=== PATIENT | female | born 1980 | race African-American/Black ===

== ENCOUNTER 2016-09-06 15:17 | Inpatient (IN) ==
[2016-09-06 16:09] LABS: MANUAL DIFF NEEDED? NO
[2016-09-06 16:20] LABS: BASO% 0.5 % (0.0-0.8); EOS# 0.13 X1000 (0.0-0.7); HEMATOCRIT 35.3 % (37.0-47.0); HEMOGLOBIN 12.3 g/dL (12.0-16.0); LYMPH# 1.75 X1000 (1.2-3.4); LYMPH% 27.4 % (20.5-51.1); MCHC 34.8 g/dL (33-37); MCV 88.9 FL (81-99); MONO# 0.42 X1000 (0.11-0.59); MONO% 6.6 % (1.7-9.3); MPV 9.8 FL (7.4-10.4); NEUT% 63.5 % (42.2-75.2); PLT 327 X1000 (130-400); RBC 3.97 XMIL (4.2-5.4)
[2016-09-06 16:52] LABS: AGAP 17; ALBUMIN 4.2 g/dL (3.5-5.0); ALKALINE PHOSPHATASE 40 U/L (32-104); AMYLASE 147 U/L (20-200); BUN 11 mg/dL (8-22); CHLORIDE 97 mmol/L (98-107); COSMO 269; GOT 17 U/L (10-30); GPT 8 U/L (10-36); LIPASE 15 U/L (13-60); POTASSIUM 3.6 mmol/L (3.5-5.1); SODIUM 133 mmol/L (136-145); TCO2 19 mmol/L (25-35); TOTAL BILIRUBIN 0.35 mg/dL (0.20-1.00); TOTAL PROTEIN 7.9 g/dL (6.3-8.3)
[2016-09-06] MEDS ORDERED: NS 2,000 ML IV ONE (20:33)
[2016-09-06] MEDS ORDERED: PHENERGAN IV ONE (20:33)
[2016-09-06] MEDS ORDERED: SODIUM CHLORIDE 0.9% INJ ONE (20:33)
[2016-09-06] MEDS ORDERED: PHENERGAN IM ONE (20:51)
[2016-09-06] MEDS ORDERED: ZOFRAN IV ONE (21:58)
[2016-09-06 22:30] LABS: URINE MICRO REVIEW NEEDED? NO; URINE SOURCE CLEAN CATCH
[2016-09-06 22:45] LABS: BILIRUBIN URINE NEGATIVE (NEGATIVE); BLOOD URINE NEGATIVE (NEGATIVE); COLOR YELLOW; GLUCOSE URINE >1000 mg/dL (NEGATIVE); LEUKOCYTES URINE NEGATIVE (NEGATIVE); NITRITE URINE NEGATIVE (NEGATIVE); PH URINE 5.5; PROTEIN URINE 50 mg/dL (NEGATIVE); SP GRAVITY URINE 1.034; TURBIDITY URINE CLEAR (CLEAR); UROBILINOGEN URINE NORMAL (NORMAL)
[2016-09-06 22:47] LABS: UR AMPHETAMINES QUAL NONE DETECTED (NONE DETECT); UR BARBITUATES QUAL NONE DETECTED (NONE DETECT); UR BENZODIAZEPIN QUAL NONE DETECTED (NONE DETECT); UR CANNABINOIDS QUAL NONE DETECTED (NONE DETECT); UR COCAINE QUAL NONE DETECTED (NONE DETECT); UR EPITHELIAL CELLS >10 /HPF (<10); UR METHADONE QUAL NONE DETECTED (NONE DETECT); UR OPIATES QUAL NONE DETECTED (NONE DETECT); UR OXYCODONE QUAL NONE DETECTED (NONE DETECT); UR PCP QUAL NONE DETECTED (NONE DETECT); URINE BACTERIA 1+ /HPF; URINE RBC <10 /HPF (<10); URINE WBC <10 /HPF (<10)
[2016-09-06] MEDS ORDERED: PATIENT'S OWN MED SUBQ SCH (23:30)
[2016-09-07] MEDS ORDERED: SODIUM CHLORIDE 0.9% INJ SCH (01:06)
[2016-09-07] MEDS: REGLAN IV SCH ×5 (01:31→18:11)
[2016-09-07] MEDS: PEPCID IV SCH ×2 (01:31→12:15)
[2016-09-07] MEDS: NS 1,000 ML IV SCH ×4 (01:32→17:19)
[2016-09-07 02:03] LABS: URINE CULTURE NEEDED? YES
[2016-09-07 02:17] LABS: MAGNESIUM 1.6 mg/dL (1.5-2.7)
[2016-09-07 03:13] LABS: HEMOGLOBIN A1C 5.3 % (4.8-6.0)
[2016-09-07 06:13] LABS: AGAP 18; BUN 12 mg/dL (8-22); CALCIUM 8.5 mg/dL (8.8-10.2); CHLORIDE 100 mmol/L (98-107); COSMO 275; POTASSIUM 3.7 mmol/L (3.5-5.1); SODIUM 135 mmol/L (136-145); TCO2 17 mmol/L (25-35)
[2016-09-07 06:27] LABS: BASO% 0.1 % (0.0-0.8); HEMATOCRIT 31.8 % (37.0-47.0); IMM GRAN# 0.03 X1000 (0.0-0.04); IMM GRAN% 0.2 % (0.0-0.5); LYMPH# 0.89 X1000 (1.2-3.4); LYMPH% 6.8 % (20.5-51.1); MANUAL DIFF NEEDED? YES; MCH 30.7 PG (27-31); MCHC 34.6 g/dL (33-37); MCV 88.8 FL (81-99); MONO# 0.34 X1000 (0.11-0.59); MONO% 2.6 % (1.7-9.3); NEUT% 90.3 % (42.2-75.2); PLT 300 X1000 (130-400); RBC 3.58 XMIL (4.2-5.4)
[2016-09-07 07:14] LABS: BANDS 4 % (0-1); LYMPHS 10 % (21-51)
--- NOTE | 2016-09-07 07:21 | HISTORY AND PHYSICAL ---
PRIMARY CARE PHYSICIAN: Dr. Melton. CHIEF COMPLAINT: Intractable nausea and vomiting. HISTORY OF PRESENT ILLNESS: This is a 36-year-old, female, with past medical history of diabetic gastroparesis and diabetes type 1, who presents to the emergency department today complaining of intractable nausea and vomiting. The patient has had probably 20 episodes of vomiting, some of them with bilious content. Upon ER evaluation, patient vitals were okay, and as per ER record patient was seen around 15:41, and a test was ordered, and 7:45, and also there is an order for abdominal x-ray ordered at 9:09 p.m. Apparently, they did not check this. It was positive, that is why they ordered a radiology exam. In any case, the patient is feeling better. She has received Zofran 8 mg IV, and also Phenergan, and she is still feeling fine. Zofran probably has some result on first trimester, so we prefer to avoid it. The patient also has talked with the doctor who placed this pacemaker, and according to him, the batteries will last 8 years, and considering that this patient was doing completely fine until yesterday and today, makes me think that this is not anything related to the pacemaker, as his doctor confirmed. The patient is being admitted for further evaluation and treatment. PAST MEDICAL HISTORY: 1. Diabetes type 1 on insulin pump. 2. Diabetic gastroparesis. 3. History of hemorrhoids. PAST SURGICAL HISTORY: 1. Cholecystectomy. 2. Pyloroplasty. 3. Removal of jejunostomy tube. ALLERGIES: No known drug allergies. SOCIAL HISTORY: The patient lives with . This is her 2nd , and on the first one she had a miscarriage. She denies using alcohol, smoking tobacco or using illicit drugs. FAMILY HISTORY: Noncontributory. REVIEW OF SYSTEMS: Eleven systems were reviewed, and all symptoms are related to the H P. PHYSICAL EXAMINATION: VITAL SIGNS: Temperature 98.6, heart rate 72, respiratory rate 18, blood pressure 132/72, O2 saturation 100% on room air. GENERAL: This is a 36-year-old, female, lying in bed, in no acute distress. HEENT: Head is normocephalic and atraumatic. Anicteric sclerae and pale conjunctivae. Mucous membranes moist. NECK: Supple. No JVD noted. No carotid bruits. No lymphadenopathy. No thyromegaly. CARDIOVASCULAR: S1, S2 heard. No murmurs, gallops, or rubs. Regular rate and rhythm. RESPIRATORY: Clear bilaterally to auscultation. No work of breathing or using accessory muscles. ABDOMEN: Soft, nontender to palpation. Bowel sounds present. No organomegaly. EXTREMITIES: No clubbing, cyanosis, or edema. Peripheral pulses present in both legs. NEUROLOGICAL: Patient is alert and oriented x3, able to move her extremities. Cranial nerves 2 through 12 grossly normal. LABORATORY DATA: CBC and BMP are completely unremarkable. Urine shows glucose, negative ketones and is negative. ASSESSMENT AND PLAN: 1. Hyperemesis gravidarum. 2. History of gastric pacemaker placement. 3. Diabetes mellitus type 1. PLAN: 1. The patient is going to be admitted to the hospital because of intractable nausea and vomiting. According to mother, it seems she got the pacemaker. She doesn't have any nausea or vomiting at all until yesterday and today. I think there is no problem with the pacemaker. Also, as mentioned before, Dr. Christian Smith talked with her GI doctor, who placed this gastric pacemaker, and they think it is not related to this device. 2. In any case, we are going to start IV fluids. We are going to start Reglan, which is can be used in . She is not complaining of any pain, so we are not providing pain medication at least at this time. 3. We are going to consult DRAWBENCH OPERATOR. We are going to put in the order for ultrasound to see how many weeks she is, and also we will defer the care of this patient in the morning to her primary care physician, Dr. Melton. cc: Altaf Larsen MD
--- NOTE | 2016-09-07 08:11 | PROGRESS NOTE ---
DATE: 09/07/2016 Level 3 visit. SUBJECTIVE: Interval history was reviewed by H and P done by hospitalist. She is well known to me, a 36-year-old female who has been suffering from type 1 diabetes, well controlled after gastric pacemaker since 2012, doing very well, and also gastroparesis, which was controlled after gastric pacemaker. She presented to the emergency room with intractable nausea, vomiting. Last bowel movement 2 days ago. After workup in the emergency room, the patient was found to have 8-week . Last menstrual period 07/08/2016. She is sexually active. She is feeling a little better. REVIEW OF SYSTEMS: General: Nausea retching. HEENT: No headache. No vision problem. No earache. No sore throat. Neck: No goiter. No lymphadenopathy. No bruit. Cardiopulmonary: No chest pain, shortness of breath, PND, orthopnea. : No history of hesitancy, frequency. Skin: No skin rashes. No swelling of feet. PAST MEDICAL HISTORY: Reviewed. PAST SURGICAL HISTORY: Reviewed. MEDICATIONS: Reviewed. PHYSICAL EXAMINATION: Vital Signs: Low-grade fever, blood pressure is 140/65, height 5 feet 4, weight 160 pounds. HEENT: Atraumatic, normocephalic. Pupils equal and reactive to light. TMs are normal. Dry mucous membranes. Neck: Supple. JVD is normal. Chest: Clear to auscultation. Heart: Heart sounds are regular. Abdomen: Belly is soft, nontender. Good bowel sounds. No masses palpable. Pelvic exam deferred. Extremities: No peripheral edema, cyanosis. Neurological: No obvious deficits. LABORATORY DATA: CBC: White cell count 13, hematocrit 32, platelets 300. SMA- 7: Sodium 135, potassium 3.7, chloride 100, anion gap is 18, BUN 12, creatinine 0.6, glucose 186. Magnesium 1.6. Liver function tests were normal. Serum test is positive. Urinalysis is negative. Tox screen was negative. ASSESSMENT AND PLAN: 1. Intractable nausea and vomiting due to hyperemesis gravidarum Primi . Plan is obstetrical ultrasound. Dr. Lepe consult. 2. Dehydration. Intravenous fluids. 3. Gastrointestinal prophylaxis with intravenous Pepcid and Reglan as needed. 4. Diet. Clear liquids. 5. Diabetes, on insulin pump. Follow up on sliding scale. Check the A1c. 6. Fever at 99.6, elevated white cell count. Repeat the urine for culture. 7. Discussed with the family and the . DOCUMENTATION TIME: 35 minutes. cc: Pietro Melton MD MTDD
--- NOTE | 2016-09-07 10:40 | Diag Imaging Result Document ---
PROCEDURE NAME: US OBS COMPLETE < 14 WKS - 09/07/2016 OB ULTRASOUND: FINDINGS: There is a viable intrauterine gestation with a heart rate of 169 beats per minute. By multiple parameters, estimated gestational age is 12 weeks 6 days with an SERAFIN of 03/16/2017. The estimated weight is 61 g. Fetus is in breech presentation. The placenta appears to be anterior. There are no adnexal masses. The amniotic fluid volume is normal in appearance. IMPRESSION: Viable intrauterine gestation at 12 weeks 6 days by ultrasound.
--- NOTE | 2016-09-07 20:54 | CONSULTATION ---
DATE OF CONSULTATION: 09/07/2016 REFERRING PHYSICIAN: Pietro Melton M.D. CONSULTING PHYSICIAN: Reinier Lepe M.D. REASON FOR CONSULTATION: . SUMMARY: Sina Johnston is a 36-year-old who did not realize she was until she presented to the emergency department with nausea and vomiting. She had an ultrasound and was found to be approximately 13 weeks . She does have a history of diabetes and it sounds like she has been under good control recently. She also has a history of gastroparesis and has a gastric pacemaker. She has no questions today and we will be more than happy to see her for care as soon as she is released from the hospital. She has my name and phone number, and will contact us. cc: MD Pietro Hall MD
[2016-09-08] MEDS: REGLAN IV SCH ×4 (00:12→18:57)
[2016-09-08] MEDS: PEPCID IV SCH ×2 (00:12→12:13)
[2016-09-08] MEDS: NS 1,000 ML IV SCH ×3 (00:54→15:38)
[2016-09-08 06:35] LABS: AGAP 14; BUN 10 mg/dL (8-22); CALCIUM 8.1 mg/dL (8.8-10.2); CHLORIDE 103 mmol/L (98-107); COSMO 273; MAGNESIUM 1.9 mg/dL (1.5-2.7); POTASSIUM 3.7 mmol/L (3.5-5.1); SODIUM 135 mmol/L (136-145); TCO2 18 mmol/L (25-35)
[2016-09-08 06:41] LABS: HEMOGLOBIN A1C 6.7 % (4.8-6.0)
[2016-09-08 07:36] LABS: BASO% 0.4 % (0.0-0.8); EOS# 0.07 X1000 (0.0-0.7); EOS% 0.7 % (0.0-10.0); HEMATOCRIT 27.2 % (37.0-47.0); HEMOGLOBIN 9.1 g/dL (12.0-16.0); IMM GRAN# 0.02 X1000 (0.0-0.04); IMM GRAN% 0.2 % (0.0-0.5); LYMPH# 3.16 X1000 (1.2-3.4); LYMPH% 32.8 % (20.5-51.1); MCH 30.4 PG (27-31); MCHC 33.5 g/dL (33-37); MONO# 1.02 X1000 (0.11-0.59); MONO% 10.6 % (1.7-9.3); NEUT% 55.3 % (42.2-75.2); PLT 248 X1000 (130-400); RBC 2.99 XMIL (4.2-5.4)
--- NOTE | 2016-09-08 08:55 | PROGRESS NOTE ---
DATE: 09/08/2016 SUBJECTIVE: In the last 24 hours, nausea has improved. I did discuss with Dr. Lepe who is going to see the patient last evening. Patient had SUPPLY AIDE ultrasound done. This morning, she is tolerating a liquid diet without nausea or vomiting. REVIEW OF SYSTEMS: Otherwise none reported. PHYSICAL EXAMINATION: Vital Signs: Afebrile, blood pressure is 93/57, 167 pounds. HEENT: Examination within normal limits. Neck: Supple. No lymphadenopathy. Chest: Clear to auscultation. Heart: Heart sounds are regular. Abdomen: Belly is soft, nontender. Good bowel sounds. Extremities: No peripheral edema, cyanosis, or clubbing. LABS: On 09/08/2016, white cell count 9.6, hematocrit 27, platelets were 248,000. SMA 7: Sodium 135, potassium 3.7, chloride 103, BUN 10, creatinine 0.5, glucose 168. Magnesium 1.9. LFTs were normal. ASSESSMENT AND PLAN: 1. Nausea and vomiting, probably from hyperemesis gravidarum, stable. 2. Impending dehydration. Continue intravenous fluids. 3. Advance the diet to 1800 calorie, [place] diet. 4. Anemia. Gastric occult positive. In light of , we will give the iron infusion 300 mg. 5. Obstetric/gynecologic ultrasound reported primigravida. Follow up with Dr. Lepe 12 weeks gestational and breech presentation. Discussed with the family and the patient, and the wants an excuse for work until 09/14/2016. cc: Pietro Melton MD
[2016-09-08] MEDS ORDERED: VENOFER IV ONE (21:18)
[2016-09-08] MEDS ORDERED: VENOFER 300 MG in NS 250 ML IV ONE (22:00)
[2016-09-09] MEDS: REGLAN IV SCH ×2 (02:09→08:26)
[2016-09-09] MEDS: NS 1,000 ML IV SCH ×2 (02:10→08:26)
[2016-09-09] MEDS: PEPCID IV SCH (02:10)
[2016-09-09 05:06] LABS: MANUAL DIFF NEEDED? NO
[2016-09-09 05:21] LABS: BASO% 0.4 % (0.0-0.8); EOS# 0.18 X1000 (0.0-0.7); EOS% 2.5 % (0.0-10.0); HEMATOCRIT 27.3 % (37.0-47.0); HEMOGLOBIN 9.2 g/dL (12.0-16.0); LYMPH# 3.66 X1000 (1.2-3.4); LYMPH% 50.5 % (20.5-51.1); MCH 30.8 PG (27-31); MCHC 33.7 g/dL (33-37); MCV 91.3 FL (81-99); MONO# 0.62 X1000 (0.11-0.59); MONO% 8.6 % (1.7-9.3); MPV 11.1 FL (7.4-10.4); PLT 107 X1000 (130-400); RBC 2.99 XMIL (4.2-5.4)
[2016-09-09 05:51] LABS: AGAP 11; BUN 11 mg/dL (8-22); CALCIUM 7.6 mg/dL (8.8-10.2); CHLORIDE 107 mmol/L (98-107); COSMO 272; POTASSIUM 3.7 mmol/L (3.5-5.1); SODIUM 137 mmol/L (136-145); TCO2 19 mmol/L (25-35)
[2016-09-09 07:53] VITALS: BP 121/72
--- NOTE | 2016-09-09 22:27 | DISCHARGE SUMMARY ---
ADMISSION DATE: 09/06/2016 DISCHARGE DATE: 09/09/2016 DISCHARGING DIAGNOSIS: 1. Intractable nausea, vomiting due to hyperemesis gravidarum. 2. Primigravida. SECONDARY DIAGNOSES: 1. Type 1 diabetes, on insulin pump. 2. History of diabetes gastroparesis, on gastric pacemaker. CONSULTS: Dr. Reinier Lepe. BRIEF HISTORY: Please see the H and P that was done by Dr. Kennedy on 2016. In brief, she is a 36-year-old, female with a known history of type 1 diabetes, with insulin pump. Basically, came in with intractable nausea, vomiting. Ever since she has a gastric pacemaker, she had never had any nausea or vomiting. Blood sugars are doing very well. Apparently, she was found to be before the x-ray. She did have last period beginning of July. VP OF MARKETING ultrasound, she is 12 weeks. She was given IV fluids , Pepcid and Phenergan as needed. Patient was seen by Dr. Lepe who is going to follow up for care once she gets better and out of the hospital. During this hospital course, she had gastric secretions positive for blood and followup hematocrit was 27. She was given 1 bag of Venofer 300 mg. The patient has been tolerating the diet very well. There were no signs of GI bleeding noted. LABORATORIES: White cell count 7.2, hematocrit 27, platelets 107,000. SMA7: Sodium 137, potassium 3.7. Anion gap is 11, BUN 11, creatinine 0.5, glucose 119. A1c 6.1. LFTs were normal. Urine toxic screen is negative. Urinalysis positive for ketones at the time of admission. She is tolerating the diet very well. Vitals are stable. DISCHARGE INSTRUCTIONS: 1. Follow up with Dr. Lepe for care. Continue subcutaneous insulin pump. Pepcid 20 mg daily, Icar C Plus 1 tablet daily, Diclegis 03/09 1 tablet p.o. b.i.d. for nausea. 2. Follow up with Dr. Lepe for anemia and care. cc: MD Reinier Chinchilla MD [facility]
--- NOTE | 2016-09-15 14:30 | PROVIDER DOCUMENTATION ---
This chart was entered by Martinez Escobar Scribe, acting as scribe for Christian Smith MD. HPI-Abdominal Pain/GI Problem - General Chief Complaint: Vomiting Stated Complaint: ABD PAIN Time Seen by Provider: 09/06/16 20:24 Source: patient Allergies/Adverse Reactions: Patient Allergies Allergy/AdvReac Type Severity Reaction Status Date / Time tapentadol AdvReac ITCHING Verified 09/06/16 20:22 Home Medications: Home Medication List Medication Instructions Recorded Confirmed Last Taken Type Subcutaneous Insulin Pump [Insulin 1 each MC DIRECTED 07/29/12 09/06/1609/06 20:21 History Pump] Ondansetron HCl [Zofran] 4 mg PO Q6H #30 tablet 08/01/12 09/06/16 Unknown Rx - History of Present Illness-ABD Nature of Presenting Problems: Pt is a 36 yof who presents to ER with CC of N/V (emesis) and abdominal pain that started today at 1200. Pt reports that she has been having abdominal issues x2-3 weeks. Pt has hx of diabetes, gastroparesis, and has a gastric pacemaker. Pt also reports that her last gastroparesis flare up was in 2011 ( gastric pacemaker put in in 2011). Pt has been vomiting emesis (coffee grounds) and has not had an appetite in the past several days. Pt reports that she has not had a bm x"several days." Abdominal Pain Onset Location: reports: generalized abdomen Pain Radiation: reports: no radiation Quality of Pain: reports: aching, cramping Severity in ED: reports: severe Onset/Duration: reports: this afternoon (1200) Timing: reports: still present Associated Symptoms: reports: anxiety, loss of appetite, muscle aches, nausea, vomiting, weakness. denies: arm pain, back/neck pain, chest pain, constipation , cough, diaphoresis, diarrhea, dizziness, EENT symptoms, fatigue, fever/chills , genitourinary problems, headaches, heartburn, joint pain, malaise, sinus congestion/drainage, rash, seizure, shortness of breath, sensory/motor loss, pain with inspiration, swelling/mass in abdomen, syncope, trouble walking Last BM: unsure Dark Stools Present?: reports: none noticed Rectal Bleeding: reports: none Rectal Pain: reports: none Emesis Description: reports: coffee grounds Similar Symptoms Previously?: Yes (in 2012) Recently seen or treated by another doctor?: No Review of Systems - Adult - REVIEW OF SYSTEMS - ADULT Constitutional: denies: chills, fever, fatique, night sweats, weight gain, weight loss Eyes: reports: no symptoms reported Ears, Nose, Mouth & Throat: reports: no symptoms reported Cardiovascular: denies: chest pain, edema, heart murmur, irregular heart rate, orthopnea, palpitations, poor circulation, PND, syncope Respiratory: denies: chronic cough, cough, dyspnea on exertion, excessive sputum production, hemoptysis, pleurisy, shortness of breath, wheezing Gastrointestinal: reports: abdominal pain, hematemesis, nausea, poor appetite, vomiting. denies: constipation, diarrhea, difficulty swallowing, frequent heartburn, rectal bleeding Genitourinary: reports: no symptoms reported Musculoskeletal: denies: bone pain, back pain, frequent leg cramps, joint pain, joint swelling, muscle aches, muscle weakness, neck pain Integumentary: reports: no symptoms reported Neurological: reports: no symptoms reported Psychiatric: reports: no symptoms reported Endocrine: reports: no symptoms reported Hematologic/Lymphatic: reports: no symptoms reported Allergic/Immunologic: reports: no symptoms reported All Other Systems: Reviewed and Negative Past History - Adult - PAST MEDICAL HISTORY-ADULT Review of Records: reports: Nursing Assessment Review, Medications Reviewed - IMMUNIZATION STATUS Childhood Immunizations: See Nurse Assessment Flu Vaccine: See Nurse Assessment Physical Exam-General - PHYSICAL EXAM-ADULT Initial Vital Signs Reviewed: Yes - CONSTITUTIONAL General Appearance: appears well, alert, severe distress, anxious, lethargic, slow to respond. negative: no apparent distress, mild distress, moderate distress, cachetic, obese, thin, obtunded, combative - NECK Neck: non-tender, full range of motion, supple. negative: C-spine tenderness, limited range of motion, lymphadenopathy - RESPIRATORY Respiratory: chest non-tender, lungs clear, normal breath sounds, no pleuratic chest pain, no respiratory distress, no accessory muscle use. negative: wheezing - CARDIOVASCULAR Cardiovascular: normal peripheral pulses, regular rate, rhythm. negative: bradycardia, tachycardia, irregularly irregular - GASTROINTESTINAL (ABDOMEN) Abdominal Exam: normal bowel sounds, soft, no organomegaly, no pulsatile mass, abnormal bowel sounds (diminished), tenderness (generalized). negative: non tender - MUSCULOSKELETAL Back Exam: no CVA tenderness, no vertebral tenderness. negative: CVA tenderness , decreased range of motion, ecchymosis, muscle spasm, swelling, vertebral tenderness - NEUROLOGIC Neurologic: facialist II-XII nml as tested, grossly normal, no motor/sensory deficits . negative: facial droop, focal weakness, motor weakness, sensory deficit - PSYCHIATRIC Psych/Mental Status: normal thought content, normal thought process, oriented x 3, anxious, disheveled, tearful. negative: normal mood/affect Progress - PLAN OF CARE/RESULTS Progress/Plan/Lab Results: Vital Signs - 8 hr 09/06/16 15:38 Temperature 98.4 F Pulse Rate 66 Respiratory Rate 16 Blood Pressure 129/74 O2 Sat by Pulse Oximetry 100 Laboratory Results - last 24 hr 09/06/16 09/06/16 16:02 16:02 WBC 6.38 RBC 3.97 L Hgb 12.3 Hct 35.3 L MCV 88.9 MCH 31.0 MCHC 34.8 RDW Std Deviation 13.1 Plt Count 327 MPV 9.8 Immature Gran % (Auto) 0.0 Neut % (Auto) 63.5 Lymph % (Auto) 27.4 Thayer % (Auto) 6.6 Eos % (Auto) 2.0 Baso % (Auto) 0.5 Immature Gran # (Auto) 0.00 Neut # (Auto) 4.05 Lymph # (Auto) 1.75 Thayer # (Auto) 0.42 Eos # (Auto) 0.13 Baso # (Auto) 0.03 Sodium 133 L Potassium 3.6 Chloride 97 L Carbon Dioxide 19 L Anion Gap 17 BUN 11 Creatinine 0.6 Estimated GFR/1.73 m2 > 60 BUN/Creatinine Ratio 18 Glucose 155 H Calculated Osmolality 269 Calcium 9.0 Total Bilirubin 0.35 AST 17 ALT 8 L Alkaline Phosphatase 40 Total Protein 7.9 Albumin 4.2 Globulin 3.7 Albumin/Globulin Ratio 1.1 Amylase 147 Lipase 15 Orders Category Date Time Status Saline Loc DIRECTED Care 09/06/16 15:41 Completed Saline Loc DIRECTED Care 09/06/16 20:19 Active NPO Diet 09/06/16 15:41 Active AMYLASE [CHEM] Stat Lab 09/06/16 16:02 Completed AMYLASE [CHEM] Stat Lab 09/06/16 20:19 Ordered CBC WITH ELECTRONIC DIFF [HEME] Stat Lab 09/06/16 16:02 Completed CBC WITH ELECTRONIC DIFF [HEME] Stat Lab 09/06/16 20:19 Ordered COMPREHENSIVE METABOLIC PANEL [CHEM] Stat Lab 09/06/16 16:02 Completed COMPREHENSIVE METABOLIC PANEL [CHEM] Stat Lab 09/06/16 20:19 Ordered LIPASE [CHEM] Stat Lab 09/06/16 16:02 Completed LIPASE [CHEM] Stat Lab 09/06/16 20:19 Ordered UDS [URINE DRUG SCREEN] Stat Lab 09/06/16 20:24 Uncollected URINALYSIS W/POSS RFLX CULT [URINALYSIS] Stat Lab 09/06/16 15:41 Uncollected Result Diagrams: 09/06/16 16:02 09/06/16 16:02 - CONSULTS/PCP/HOSPITALIST Notification #1 *Consult/PCP/Hospitalist*: Dr. Kennedy (Hospitalist) Time Discussed: 22:25 Consult Disposition: Admit Departure - Departure Time of Disposition Decision: 22:25 DIAGNOSIS: Gastroparesis Diabetes mellitus Qualifiers: Diabetes mellitus type: type 2 Diabetes mellitus complication status: with unspecified complications Diabetes mellitus long term care pharmacist insulin use: unspecified assisted insulin use status Qualified Code(s): E11.8 - Type 2 diabetes mellitus with unspecified complications Hematemesis Qualifiers: Nausea presence: with nausea Qualified Code(s): K92.0 - Hematemesis; R11.0 - Nausea Disposition: ADMITTED INPATIENT 09 Certified Medical Emergency: Emergent Condition: Stable Referrals and Follow-Ups: Chio Melton MD [Primary Care Provider] - This chart was documented by the indicated scribe, (Martinez Escobar Scribe) and accurately reflects the services I performed and decisions made by , Christian Smith MD, as attested by the provider's signature.
== END 2016-09-09 08:45 | disposition home or self-care (01) ==
LOC: ED 15:17 → 3S 23:35 → SUATTDRO 23:35
PROVIDERS: ADMIT Internal Medicine; ATTEND Internal Medicine

== ENCOUNTER 2016-09-28 12:32 | Inpatient (IN) ==
[2016-09-28 13:38] LABS: MANUAL DIFF NEEDED? NO
[2016-09-28 13:40] LABS: BASO% 0.3 % (0.0-0.8); EOS% 1.3 % (0.0-10.0); HEMATOCRIT 37.3 % (37.0-47.0); HEMOGLOBIN 12.7 g/dL (12.0-16.0); IMM GRAN# 0.01 X1000 (0.0-0.04); IMM GRAN% 0.1 % (0.0-0.5); LYMPH# 1.49 X1000 (1.2-3.4); LYMPH% 18.6 % (20.5-51.1); MCH 30.3 PG (27-31); MONO# 0.37 X1000 (0.11-0.59); MONO% 4.6 % (1.7-9.3); MPV 9.9 FL (7.4-10.4); NEUT% 75.1 % (42.2-75.2); PLT 353 X1000 (130-400); RBC 4.19 XMIL (4.2-5.4)
[2016-09-28 13:42] LABS: BE -0.5 mmoll (-3.0-3.0); BLOOD TYPE ARTERIAL; METHB 1.2 % (0.0-1.5); PCO2(98.6) 39 mmHg (35-45); PO2(98.6) 88 mmHg (60-100); SAMPLE BLOOD; SAO2 98.3 % (95.0-100.0); THB 11.1 g/dL (11.5-17.4)
[2016-09-28] MEDS ORDERED: ZOFRAN IV ONE (13:44)
[2016-09-28] MEDS ORDERED: ZOFRAN ONE (13:45)
[2016-09-28 13:47] LABS: DRAW SITE L RADIAL; MODALITY ROOM AIR
[2016-09-28 13:48] LABS: ALLEN TEST YES
[2016-09-28] MEDS ORDERED: NS 1,000 ML IV ONE ×2 (13:48→16:24)
[2016-09-28 14:02] LABS: AGAP 16; ALBUMIN 4.8 g/dL (3.5-5.0); ALKALINE PHOSPHATASE 47 U/L (32-104); AMYLASE 202 U/L (20-200); BUN 8 mg/dL (8-22); CALCIUM 9.8 mg/dL (8.8-10.2); CHLORIDE 97 mmol/L (98-107); COSMO 272; GOT 18 U/L (10-30); GPT 8 U/L (10-36); LIPASE 19 U/L (13-60); POTASSIUM 3.5 mmol/L (3.5-5.1); SODIUM 135 mmol/L (136-145); TCO2 22 mmol/L (25-35); TOTAL PROTEIN 8.8 g/dL (6.3-8.3)
[2016-09-28] MEDS ORDERED: REGLAN IV ONE (14:03)
[2016-09-28 15:04] LABS: BILIRUBIN URINE NEGATIVE (NEGATIVE); BLOOD URINE TRACE (NEGATIVE); CLARITY SL. CLOUDY (CLEAR); COLOR YELLOW; LEUKOCYTES URINE 1+ (NEGATIVE); NITRITE URINE NEGATIVE (NEGATIVE); PROTEIN URINE 1+(30 mg/dL) mg/dL (NEGATIVE); SP GRAVITY URINE 1.025; UROBILINOGEN URINE NORMAL
[2016-09-28 15:05] LABS: URINE CULTURE PL NEEDED? YES; URINE EPITHELIAL CELLS >10 /HPF (<10); URINE RBC <10 /HPF (<10); URINE SOURCE CLEAN CATCH
[2016-09-28] MEDS ORDERED: ROCEPHIN 1 GM/NS 1 GM/50 ML IVPB IV ONE (15:11)
[2016-09-28] MEDS ORDERED: PHENERGAN IM ONE (16:05)
--- NOTE | 2016-09-28 16:22 | PROVIDER DOCUMENTATION ---
This chart was entered by Adam Masters Scribe, acting as scribe for Ivon Nielson MD. HPI-Abdominal Pain/GI Problem - General Chief Complaint: Nausea/Vomiting Stated Complaint: NAUSEA/VOMITING Time Seen by Provider: 09/28/16 13:45 Source: patient Allergies/Adverse Reactions: Patient Allergies Allergy/AdvReac Type Severity Reaction Status Date / Time tapentadol AdvReac ITCHING Verified 09/06/16 20:22 Home Medications: Home Medication List Medication Instructions Recorded Confirmed Last Taken Type Subcutaneous Insulin Pump [Insulin 1 each MC DIRECTED 07/29/12 09/06/1609/06 20:21 History Pump] Doxylamine/Pyridoxine HCl 1 each PO BID #30 tablet. 09/09/16 Unknown Rx [Kemar Dr 10-10 mg Tablet] Famotidine [Pepcid AC] 20 mg PO DAILY #30 tablet 09/09/16 Unknown Rx Iron Carbonyl/Vit C/Vit B12/FA 1 each PO DAILY #30 tablet 09/09/16 Unknown Rx [Icar-C Plus] - History of Present Illness-ABD Nature of Presenting Problems: 36 y/o F presents to the ED c/o n/v. onset this morning. patient states she is x15 weeks and has a hx of gastroparesis. hx of diabetes. patient states she has not had vomiting with and is concerned today that the vomiting is not related to . denies all other symptoms. no other voiced complaints. Quality of Pain: reports: none Severity in ED: reports: mild Onset/Duration: reports: this morning Timing: reports: still present Activities at Onset: reports: none Modifying Factors: improves with: nothing Associated Symptoms: reports: nausea, vomiting Similar Symptoms Previously?: Yes Recently seen or treated by another doctor?: Yes Review of Systems - Adult - REVIEW OF SYSTEMS - ADULT Constitutional: denies: chills, fever Eyes: reports: no symptoms reported Ears, Nose, Mouth & Throat: reports: no symptoms reported Cardiovascular: denies: chest pain, palpitations Respiratory: denies: shortness of breath, wheezing Gastrointestinal: reports: nausea, vomiting. denies: diarrhea Genitourinary: denies: dysuria, frequency Musculoskeletal: denies: bone pain, back pain Integumentary: denies: itching, rash Neurological: denies: dizziness/vertigo, headache/migraines Psychiatric: reports: no symptoms reported Endocrine: reports: no symptoms reported Hematologic/Lymphatic: reports: no symptoms reported Allergic/Immunologic: reports: no symptoms reported All Other Systems: Reviewed and Negative Past History - Adult - PAST MEDICAL HISTORY-ADULT Review of Records: reports: Nursing Assessment Review, Medications Reviewed Major Childhood Illnesses: reports: denies history Cardiovascular: reports: denies history Respiratory: reports: denies history Gastrointestinal: reports: other (gastroparesis) Obstetrical/Gynecological: reports: denies history Genitourinary: reports: denies history Musculoskeletal: reports: denies history Neurological: reports: denies history Psychiatric: reports: denies history Endocrine/Immune: reports: Diabetes Diabetes Type: Type 1 Diabetes controlled by:: Insulin Dependent Other Conditions: reports: denies history - PRIOR SURGERIES/PROCEDURES Surgical/Procedure History: reports: cholecystectomy - IMMUNIZATION STATUS Childhood Immunizations: See Nurse Assessment Flu Vaccine: See Nurse Assessment Physical Exam-General - PHYSICAL EXAM-ADULT Initial Vital Signs Reviewed: Yes - CONSTITUTIONAL General Appearance: alert, no apparent distress - EYES Eyes: PERRL/EOMI, pink conjunctivae - HEAD, EARS, NOSE, MOUTH & THROAT HENMT: moist mucous membranes, normal ENT inspection - NECK Neck: full range of motion, normal inspection - RESPIRATORY Respiratory: lungs clear, normal breath sounds, no respiratory distress, no accessory muscle use - CARDIOVASCULAR Cardiovascular: normal peripheral pulses, regular rate, rhythm Progress - PLAN OF CARE/RESULTS Progress/Plan/Lab Results: Vital Signs - 8 hr 09/28/16 12:39 09/28/16 13:22 Temperature 97.8 F Pulse Rate 72 Pulse Rate [Sitting] 91 H Pulse Rate [Standing] 77 Pulse Rate [Supine] 89 Respiratory Rate 18 Blood Pressure 142/83 Blood Pressure [Sitting] 147/77 Blood Pressure [Standing] 127/78 Blood Pressure [Supine] 135/79 O2 Sat by Pulse Oximetry 98 Laboratory Results - last 24 hr 09/28/16 09/28/16 13:21 13:32 WBC 7.99 RBC 4.19 L Hgb 12.7 Hct 37.3 MCV 89.0 MCH 30.3 MCHC 34.0 RDW Std Deviation 14.0 Plt Count 353 MPV 9.9 Immature Gran % (Auto) 0.1 Neut % (Auto) 75.1 Lymph % (Auto) 18.6 L [place] % (Auto) 4.6 Eos % (Auto) 1.3 Baso % (Auto) 0.3 Immature Gran # (Auto) 0.01 Neut # (Auto) 6.00 Lymph # (Auto) 1.49 [place] # (Auto) 0.37 Eos # (Auto) 0.10 Baso # (Auto) 0.02 Specimen Type ARTERIAL Sample Site L RADIAL pH 7.40 pCO2 39 pO2 88 HCO3 24.5 Base Excess -0.5 Oxyhemoglobin 95.6 ABG O2 Sat (Calculated) 15.0 ABG O2 Saturation 98.3 ABG Carboxyhemoglobin 1.50 ABG Methemoglobin 1.2 Russ Test YES A-a O2 Difference 13.0 Total Hemoglobin 11.1 L Lactate 0.80 Blood Gas Modality ROOM AIR FiO2 % 21.0 Orders Category Date Time Status FSBS [Finger Stick Blood Sugar (ED)] DIRECTED Care 09/28/16 12:47 Active Saline Loc DIRECTED Care 09/28/16 13:18 Active NPO Diet 09/28/16 13:18 Active ABG [RESP] Routine Lab 09/28/16 13:21 Completed AMYLASE [CHEM] Stat Lab 09/28/16 13:32 Received CBC WITH ELECTRONIC DIFF [HEME] Stat Lab 09/28/16 13:32 Completed COMPREHENSIVE METABOLIC PANEL [CHEM] Stat Lab 09/28/16 13:32 Received LIPASE [CHEM] Stat Lab 09/28/16 13:32 Received MAGNESIUM [CHEM] Stat Lab 09/28/16 13:[address] W/POSS RFLX CULT [URINALYSIS] Stat Lab 09/28/16 13:18 Uncollected 0.9% Sodium Chloride Inj [Ns] 1,000 ml Med 09/28/16 13:48 Active IV 999 mls/hr Ondansetron [Zofran] Med 09/28/16 13:45 Discontinued 4 mg .ROUTE .STK-MED ONE Ondansetron [Zofran] Med 09/28/16 13:44 Discontinued 4 mg IV NOW ONE Result Diagrams: 09/28/16 13:32 09/28/16 13:32 - REASSESSMENT Reassessment #1 Time Reassessed: 16:11 Status: improving (Pt is doing better and her V resolved, but she does not feel comfortable) - CONSULTS/PCP/HOSPITALIST Notification Time Discussed: 16:22 Reason/Comments: Admit to Dr. Archuleta Consult Disposition: Admit Departure - Departure Time of Disposition Decision: 16:11 DIAGNOSIS: DM (diabetes mellitus), 15 weeks gestation of Disposition: ADMITTED INPATIENT 09 Certified Medical Emergency: Emergent Condition: Stable Referrals and Follow-Ups: Chio Melton MD [Primary Care Provider] - - Critical Care Note This patient required my direct & personal management of CC.: No This chart was documented by the indicated scribe, (Adam Masters, Scribe) and accurately reflects the services I performed and decisions made by me, Ivon Nielson MD, as attested by the provider's signature.
[2016-09-28] MEDS ORDERED: SODIUM CHLORIDE 0.9% INJ PRN (19:37)
[2016-09-28] MEDS: PHENERGAN IV PRN (20:23)
[2016-09-28] MEDS: AMBIEN PO SCH (20:23)
[2016-09-28] MEDS ORDERED: HUMULIN R (PARKWAY) SUBQ ONE (20:54)
[2016-09-28] MEDS: NS 1,000 ML IV SCH (21:07)
[2016-09-28] MEDS ORDERED: PATIENT'S OWN MED SUBQ SCH (21:45)
--- NOTE | 2016-09-28 21:45 | HISTORY AND PHYSICAL ---
PREDELIVERY DIAGNOSES: 1. Intrauterine approximately 15 weeks. 2. Nausea, vomiting. 3. Dehydration. 4. Insulin-dependent diabetes. 5. Gastroparesis. CONDITION: Stable. HISTORY OF PRESENT ILLNESS: Ms Johnston is a 36-year-old 2, para 0 approximately 15 weeks gestation who presented to the emergency room this afternoon with persistent nausea, vomiting. The patient is known to be an insulin-dependent diabetic and is known to have gastroparesis for which she has had a gastric pacemaker placed a few years ago in [place]. During workup she was found to be dehydrated and decision was made to admit for hydration, also glucose was slightly elevated and will obtain hemoglobin A1c and continue her insulin pump. PAST MEDICAL HISTORY: Significant for the gastroparesis and insulin. PAST SURGICAL HISTORY: states she has had a cholecystectomy and appendectomy, gastric pacemaker placed and some procedure on her pyloric valve. MEDICATIONS: She is on no medication other than the insulin. ALLERGIES: The states she is allergic to latex tape. FAMILY HISTORY: Noncontributory. SOCIAL HISTORY: She denies tobacco, alcohol, drug use. PHYSICAL EXAMINATION: VITAL SIGNS: Stable. She is afebrile, 5-4, 162 pounds. Now she is resting. Per history no issues on her exam. LABORATORY VALUES: Urine appears contaminated. No real evidence of UTI. Chemistries dehydrated, carbon dioxide of 22, amylase 202 normal 7.4 pH blood gas, no white count, hemoglobin and hematocrit 12/37, platelets 353,000. ASSESSMENT: As above. PLAN: Admit for rehydration. Recheck chemistries and CBC in the morning and hemoglobin A1c. If her glucose is over 200 will give 6 units regular. cc: Reinier Archuleta MD
[2016-09-29] MEDS: NS 1,000 ML IV SCH ×3 (01:23→09:38)
[2016-09-29] MEDS: PHENERGAN IV PRN ×3 (03:05→20:25)
[2016-09-29 06:45] LABS: HEMOGLOBIN A1C 6.4 % (4.8-6.0)
[2016-09-29 06:47] LABS: HEMATOCRIT 31.4 % (37.0-47.0); HEMOGLOBIN 10.5 g/dL (12.0-16.0); MCH 30.3 PG (27-31); MCHC 33.4 g/dL (33-37); MCV 90.5 FL (81-99); MPV 10.6 FL (7.4-10.4); RBC 3.47 XMIL (4.2-5.4)
[2016-09-29 06:52] LABS: AGAP 16; ALBUMIN 3.8 g/dL (3.5-5.0); ALKALINE PHOSPHATASE 39 U/L (32-104); BUN 7 mg/dL (8-22); CALCIUM 8.4 mg/dL (8.8-10.2); CHLORIDE 99 mmol/L (98-107); COSMO 267; GOT 17 U/L (10-30); GPT 7 U/L (10-36); POTASSIUM 3.3 mmol/L (3.5-5.1); SODIUM 132 mmol/L (136-145); TCO2 18 mmol/L (25-35); TOTAL PROTEIN 6.7 g/dL (6.3-8.3)
[2016-09-29] MEDS ORDERED: REGLAN PO SCH (09:00)
[2016-09-29] MEDS: PEPCID PO SCH (09:39)
[2016-09-29] MEDS: THERA M PLUS PO SCH ×2 (09:40→21:24)
[2016-09-29] MEDS: PATIENT'S OWN MED PO SCH ×2 (10:39→21:23)
[2016-09-29] MEDS ORDERED: ZOFRAN IV PRN (11:15)
[2016-09-29] MEDS: ROCEPHIN 1 GM/NS 1 GM/50 ML IVPB IV SCH (11:46)
[2016-09-29] MEDS: NS + KCL 40 MEQ 1,000 ML IV SCH ×2 (12:14→20:25)
[2016-09-29] MEDS: REGLAN IV SCH ×3 (15:24→21:24)
[2016-09-29] MEDS: AMBIEN PO SCH (21:23)
[2016-09-30] MEDS: REGLAN IV SCH ×4 (02:56→20:36)
[2016-09-30] MEDS: NS + KCL 40 MEQ 1,000 ML IV SCH ×3 (02:57→20:46)
[2016-09-30] MEDS: PHENERGAN IV PRN (04:38)
[2016-09-30] MEDS: THERA M PLUS PO SCH ×3 (08:13→20:42)
[2016-09-30] MEDS: PEPCID PO SCH (08:13)
[2016-09-30] MEDS: ZOFRAN IV SCH ×4 (08:13→20:36)
[2016-09-30] MEDS: PATIENT'S OWN MED PO SCH ×2 (08:18→20:38)
[2016-09-30] MEDS: ROCEPHIN 1 GM/NS 1 GM/50 ML IVPB IV SCH (11:18)
[2016-09-30] MEDS: AMBIEN PO SCH ×2 (20:36→20:42)
[2016-10-01] MEDS: ZOFRAN IV SCH ×3 (01:26→08:51)
[2016-10-01] MEDS: REGLAN IV SCH ×2 (03:30→09:09)
[2016-10-01] MEDS: NS + KCL 40 MEQ 1,000 ML IV SCH ×2 (05:28→11:49)
[2016-10-01] MEDS: PEPCID PO SCH (08:51)
[2016-10-01] MEDS: THERA M PLUS PO SCH (08:51)
[2016-10-01] MEDS: PATIENT'S OWN MED PO SCH (08:56)
[2016-10-01 11:29] VITALS: BP 144/68
--- NOTE | 2016-10-01 12:02 | DISCHARGE SUMMARY ---
ADMISSION DATE: 09/28/2016 DISCHARGE DATE: 10/01/2016 ADMITTING DIAGNOSES: 1. Fifteen-week . 2. Intractable nausea and vomiting. 3. Dehydration. 4. Insulin-dependent diabetes. 5. Gastroparesis with gastric pacemaker. PRINCIPAL DIAGNOSES: 1. Fifteen-week . 2. Intractable nausea and vomiting. 3. Dehydration. 4. Insulin-dependent diabetes. 5. Gastroparesis with gastric pacemaker. PRINCIPAL PROCEDURE: IV hydration and antiemetics. SUMMARY: Mrs. Johnston is a 36-year-old 2, para 0-1-0 who is approximately 15 weeks into her . She is a known insulin-dependent diabetic who has an insulin pump. She also has gastroparesis and had a gastric pacemaker placed a few years ago in [place]. She was admitted through the emergency room on 09/28/2016 with dehydration and intractable nausea and vomiting. Initial laboratory evaluations showed a hemoglobin of 12.7, a hematocrit of 37.3. Her white count was 7.99 and platelet count 253. Her blood sugars were elevated on admission and remained elevated throughout the hospital course. Her highest blood sugar has been 225 and lowest blood sugar of 186. The remainder of her blood chemistries were normal with sodium and potassium being a little low with sodium at 132 and potassium of 3.3. Her AST was 17, ALT is 7. Urinalysis showed 2+ bacteria with negative nitrites. She was started on Rocephin for possible UTI; however, urine culture and sensitivity showing mixed otto with no pathogens being noted, Rocephin has been stopped. During her hospital course, we have had her on her insulin pump. She has also been continuing the gastric pacemaker at the current settings. She has been on Reglan, Zofran, and Phenergan. Unfortunately, she has continued to be nauseated and has been unable to tolerate any food or liquids. Unfortunately, we have not been able to get a television presenter with knowledge of a gastric pacemaker to see her. Her family doctor, Dr. Sandra Melton, has also been consulted but he, unfortunately, is unable to offer us any help with the gastric pacemaker, either. This morning I have talked with Dr. Figueroa at [facility]. Dr. Figueroa has been gracious enough to accept the patient as transfer to their facility for further care and evaluation. We have discussed this with the patient and her family. They agree to the transfer. cc: MD Reinier Hall MD
== END 2016-10-01 12:17 | disposition short-term general hospital (02) ==
LOC: P.MEDSURG 12:32 → P.ED 12:32 → OBSVTOIN 17:34
PROVIDERS: ADMIT Obstetrics & Gynecology; ATTEND Obstetrics & Gynecology

== ENCOUNTER 2016-10-25 07:08 | Inpatient (IN) ==
[2016-10-25] MEDS ORDERED: LR 1,000 ML IV ONE ×2 (07:42→11:32)
[2016-10-25] MEDS ORDERED: PHENERGAN IM ONE (07:42)
--- NOTE | 2016-10-25 07:44 | PROVIDER DOCUMENTATION ---
HPI-General Adult - General Chief Complaint: Vomiting Stated Complaint: VOMITING/19 WKS Time Seen by Provider: 10/25/16 07:31 Source: patient, family Allergies/Adverse Reactions: Patient Allergies Allergy/AdvReac Type Severity Reaction Status Date / Time tapentadol AdvReac ITCHING Verified 10/25/16 07:29 Home Medications: Home Medication List Medication Instructions Recorded Confirmed Last Taken Type Subcutaneous Insulin Pump [Insulin 1 each MC DIRECTED 07/29/12 10/25/1610/25 02:00 History Pump] Doxylamine/Pyridoxine HCl 1 each PO BID #30 tablet. 09/09/16 10/25/16 20:00 Rx [Kemar Zhong 10-10 mg Tablet] Famotidine [Pepcid AC] 20 mg PO DAILY #30 tablet 09/09/16 10/25/16 10/24/16 21: 00 Rx Metoclopramide [Reglan] 1 cap PO DAILY 09/28/16 10/25/16 10/24/16 20:00 History Promethazine [Phenergan] 25 mg PO Q6H PRN PRN 10/25/16 10/25/16 10/24/16 21:00 History - History of Present Illness -Gen Adult Nature of Presenting Problems: Patient is a 36 y/o diabetic who was recently discharge from [facility] for hyperemis gravidarum. She has been afebrile and has not had any uterine contractions or LOF. has not had any blood in vomitus and has been using her anti-emetic medications at home. No diarrhea or vaginal discharge. Location of Pain/Injury: reports: none Pain Radiation: reports: no radiation Quality of Pain: reports: none Onset/Duration: reports: unsure Timing: reports: still present Context/Activities at Onset: reports: none Modifying Factors: improves with: nothing Similar Symptoms Previously?: Yes Recently seen or treated by another doctor?: Yes - Diabetes Related Context Context: reports: high blood sugar Review of Systems - Adult - REVIEW OF SYSTEMS - ADULT Constitutional: reports: no symptoms reported Eyes: reports: no symptoms reported Ears, Nose, Mouth & Throat: reports: no symptoms reported Cardiovascular: reports: no symptoms reported Respiratory: reports: no symptoms reported Gastrointestinal: reports: nausea, vomiting Genitourinary: reports: no symptoms reported Musculoskeletal: reports: no symptoms reported Integumentary: reports: no symptoms reported Neurological: reports: no symptoms reported Psychiatric: reports: no symptoms reported Endocrine: reports: no symptoms reported Hematologic/Lymphatic: reports: no symptoms reported Allergic/Immunologic: reports: no symptoms reported Past History - Adult - PAST MEDICAL HISTORY-ADULT Review of Records: reports: Nursing Assessment Review Major Childhood Illnesses: reports: denies history Cardiovascular: reports: denies history Respiratory: reports: denies history Gastrointestinal: reports: other (gastroparesis) Obstetrical/Gynecological: reports: denies history Genitourinary: reports: denies history Musculoskeletal: reports: denies history Neurological: reports: denies history Psychiatric: reports: denies history Endocrine/Immune: reports: Diabetes Other Conditions: reports: denies history - PRIOR SURGERIES/PROCEDURES Surgical/Procedure History: reports: cholecystectomy - IMMUNIZATION STATUS Childhood Immunizations: See Nurse Assessment Flu Vaccine: See Nurse Assessment Physical Exam-General - CONSTITUTIONAL General Appearance: appears well, other (non-toxic but uncofortable) - EYES Eyes: PERRL/EOMI, pink conjunctivae - NECK Neck: non-tender - RESPIRATORY Respiratory: chest non-tender, lungs clear - CARDIOVASCULAR Cardiovascular: tachycardia - GASTROINTESTINAL (ABDOMEN) Abdominal Exam: normal bowel sounds, non tender, soft, other (Gravid uterus just below umbilicus). 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 Patient with some improvement, however, not feeling like she can tolerate oral liquids.) Reassessment #2 Status: other (Made aware that I spoke with Dr. Larios and that he will accept patient to [facility]. Patient in jack acute distress.) - CONSULTS/PCP/HOSPITALIST Notification Time Discussed: 09:25 Reason/Comments: Consult Disposition: other (Spoke with Dr. Archuleta, ask that patient receive US of gallbladder and he will decide on if he will accept barbra or not.) Time Discussed: 10:55 Consult Disposition: other (Spoke with Dr. Larios again and made aware that patient is still not able to tolerate oral liquids and that patent has already had gall bladder removed. Says that he will accept patient for transfer.) Departure - Departure Time of Disposition Decision: 11:25 DIAGNOSIS: Hyperemesis gravidarum before end of 22 week gestation with dehydration, History of diabetic gastroparesis Disposition: ADMITTED INPATIENT 09 Certified Medical Emergency: Emergent Condition: Stable - Critical Care Note This patient required my direct & personal management of CC.: No
[2016-10-25 08:00] LABS: MANUAL DIFF NEEDED? NO
[2016-10-25 08:02] LABS: BASO% 0.2 % (0.0-0.8); EOS# 0.03 X1000 (0.0-0.7); EOS% 0.3 % (0.0-10.0); HEMATOCRIT 31.7 % (37.0-47.0); HEMOGLOBIN 10.6 g/dL (12.0-16.0); IMM GRAN# 0.05 X1000 (0.0-0.04); IMM GRAN% 0.5 % (0.0-0.5); LYMPH# 0.92 X1000 (1.2-3.4); LYMPH% 9.3 % (20.5-51.1); MCH 31.4 PG (27-31); MCHC 33.4 g/dL (33-37); MCV 93.8 FL (81-99); MONO# 0.52 X1000 (0.11-0.59); MONO% 5.2 % (1.7-9.3); MPV 9.7 FL (7.4-10.4); NEUT% 84.5 % (42.2-75.2); PLT 370 X1000 (130-400); RBC 3.38 XMIL (4.2-5.4)
[2016-10-25 08:19] LABS: AGAP 17; ALBUMIN 3.4 g/dL (3.5-5.0); ALKALINE PHOSPHATASE 41 U/L (32-104); BUN 11 mg/dL (8-22); CHLORIDE 98 mmol/L (98-107); COSMO 271; GOT 23 U/L (10-30); GPT 11 U/L (10-36); SODIUM 135 mmol/L (136-145); TCO2 20 mmol/L (25-35); TOTAL BILIRUBIN 0.15 mg/dL (0.20-1.00)
[2016-10-25 09:03] LABS: URINE CULTURE NEEDED? NO; URINE MICRO REVIEW NEEDED? NO; URINE SOURCE CLEAN CATCH
[2016-10-25 09:15] LABS: BILIRUBIN URINE NEGATIVE (NEGATIVE); BLOOD URINE NEGATIVE (NEGATIVE); COLOR YELLOW; GLUCOSE URINE 500 mg/dL (NEGATIVE); LEUKOCYTES URINE NEGATIVE (NEGATIVE); NITRITE URINE NEGATIVE (NEGATIVE); PH URINE 5.5; PROTEIN URINE 30 mg/dL (NEGATIVE); SP GRAVITY URINE 1.029; TURBIDITY URINE CLEAR (CLEAR); UROBILINOGEN URINE NORMAL (NORMAL)
[2016-10-25 09:17] LABS: UR EPITHELIAL CELLS <10 /HPF (<10); URINE BACTERIA NEGATIVE /HPF; URINE RBC <10 /HPF (<10); URINE WBC <10 /HPF (<10)
[2016-10-25] MEDS ORDERED: SALINE LOCK IV FLUID XX ONE (11:30)
[2016-10-25] MEDS ORDERED: REGLAN IV ONE (11:32)
[2016-10-25] MEDS: 1/2 NS 1,000 ML IV SCH ×2 (14:54→20:00)
[2016-10-25] MEDS: PHENERGAN IV PRN ×2 (16:10→20:31)
[2016-10-25 16:29] LABS: HEMOGLOBIN A1C 6.5 % (4.8-6.0)
[2016-10-26] MEDS: SODIUM CHLORIDE 0.9% INJ PRN ×4 (01:07→15:30)
[2016-10-26] MEDS: 1/2 NS 1,000 ML IV SCH ×2 (01:07→06:27)
[2016-10-26] MEDS: PHENERGAN IV PRN ×4 (01:08→15:31)
[2016-10-26] MEDS: REGLAN IV SCH ×3 (02:57→18:09)
--- NOTE | 2016-10-26 12:34 | HISTORY AND PHYSICAL ---
ADMIT DIAGNOSES: 1. Intrauterine at 19. 2. Intractable nausea and vomiting. 3. History of insulin-dependent diabetes and gastroparesis. CONDITION: Stable. HISTORY OF PRESENT ILLNESS: Ms. Johnston is a 36-year-old, 2, para 0, at approximately 19 weeks, who came into the emergency room yesterday with nausea and vomiting, with the above history. She is known to the service. She was admitted approximately 1 month ago with the same diagnoses and she has also spent time at [facility] with the same issues. Working on a Reglan pump through the office; however, that has not happened. Patient states she is weak and has not been able to keep anything down. PAST MEDICAL HISTORY: Significant for gastroparesis. PAST MEDICAL HISTORY: Cholecystectomy, appendectomy, gastric pacemaker. MEDICATIONS: Insulin. ALLERGIES: She is allergic to latex tape. SOCIAL HISTORY: She denies alcohol, tobacco, or drug use. FAMILY HISTORY: Noncontributory. PHYSICAL EXAMINATION: VITAL SIGNS: Temp 96.8 degrees, pulse 116, respirations 18, blood pressure 142/71. She lying in bed. She cooperates. However, she does not appear well, though she states she feels better than she did yesterday. LUNGS: Clear. HEART: Regular sinus rhythm. ABDOMEN: Soft. LABORATORY VALUES: Glucose has been running high despite the fact that she is not eating. Most recent 1 was 254. She gave herself a bolus through her pump. Will check in an hour. Consider D5 LR with an insulin pump. Hemoglobin A1c is 6.5 which is essentially stable from 1 month ago, were it was 6.4. White count 9, hemoglobin and hematocrit 10/31, platelets 370,000. Her acetone was negative yesterday. Urine is negative. Will continue current management. Consider insulin drip. Try to arrange home health for a Reglan pump and otherwise just offer supportive care. cc: Reinier Archuleta MD
[2016-10-26] MEDS: NS 1,000 ML IV SCH ×2 (13:18→21:16)
[2016-10-26] MEDS: PHENERGAN IM PRN (20:18)
[2016-10-27] MEDS: PHENERGAN IM PRN ×3 (00:36→12:34)
[2016-10-27] MEDS: REGLAN IV SCH ×3 (02:58→18:55)
[2016-10-27] MEDS: NS 1,000 ML IV SCH (05:22)
--- NOTE | 2016-10-27 07:16 | HISTORY AND PHYSICAL ---
ADMITTING DIAGNOSES: 1. 20 week . 2. Persistent nausea and vomiting. 3. Insulin-dependent diabetic. 4. History of gastroparesis. HISTORY OF PRESENT ILLNESS: In summary, Ms. Johnston is being admitted to the hospital once again. She has had multiple admissions to our hospital. She has also been admitted to [facility] and [facility]. She is an insulin-dependent diabetic and is on insulin pump. Chest shows gastroparesis and is on the gastric pacemaker. She continues to have persistent nausea and vomiting. Her most recent hospitalization was for DKA. she has normal blood sugars at this time. She has been admitted for IV fluids and antiemetics. PAST MEDICAL HISTORY: As above. The patient is a type 1 diabetic with insulin pump. She has had a gastric pacemaker placed. She has had pyloric surgery in the past. Her gallbladder has been removed. She has had an appendectomy. She has had a benign breast biopsy. CURRENT MEDICATIONS ARE: Antiemetics and insulin pump. ALLERGIES: Narcotics and Lasix. PHYSICAL EXAMINATION: GENERAL: Shows a well-developed, well-nourished female. VITAL SIGNS: Stable. She is afebrile. CARDIOVASCULAR: Regular rate and rhythm without murmurs, rubs, or gallops. PULMONARY: Clear. PELVIC: Examination was not performed. EXTREMITIES: No clubbing, edema or cyanosis. LABORATORY: Evaluation shows blood sugars ranging from 254-161. IMPRESSION: 1. Gastroparesis. 2. Twenty week . 3. Insulin-dependent diabetes. 4. Persistent nausea and vomiting. PLAN: When I went in to see the patient this morning, she was sleeping. I will be coming back to see her later this morning. We will discuss a plan of care. I am going to see about getting either her internal medicine doctor which is doctor Landry Melton or one of the hospitalist's to see her and begin hyperalimentation via PICC line. cc: MD Reinier Hall MD
[2016-10-27 11:08] LABS: INR 1.04 (0.86-1.15); PROTIME 13.9 Seconds (12.1-15.5)
[2016-10-27] MEDS ORDERED: AMINOSYN IV SCH ×6 (14:00)
[2016-10-27] MEDS ORDERED: TPN ELECTROLYTES IV SCH ×6 (14:00)
[2016-10-27] MEDS ORDERED: HUMULIN R IV SCH ×6 (14:00)
[2016-10-27] MEDS ORDERED: [UNRECOGNIZED DRUG - OTHER] IV SCH ×6 (14:00)
[2016-10-27] MEDS ORDERED: NEOSPORIN OINTMENT PACKET TOP SCH (14:15)
[2016-10-27] MEDS ORDERED: SODIUM CHLORIDE 0.9% PRN (14:15)
[2016-10-27] MEDS: LIPOSYN 20% 500 ML IV SCH (15:23)
[2016-10-27] MEDS ORDERED: ZOFRAN IV PRN (16:16)
[2016-10-27] MEDS ORDERED: SODIUM CHLORIDE 0.9% INJ SCH (16:30)
[2016-10-27] MEDS: PROTONIX IV SCH (16:49)
--- NOTE | 2016-10-27 16:54 | CONSULTATION ---
DATE OF CONSULTATION: 10/27/2016 CHIEF COMPLAINT: Severe nausea, vomiting. HISTORY OF PRESENT ILLNESS: A 36-year-old female with severe protracted gastroparesis status post a gastric pacemaker who came in for protracted nausea, vomiting. She is about 19 weeks gestation. She was here in August for similar in kind and then I think ended up being transferred to [facility], was stabilized and went home. I do not think she was placed on IV nutrition at that time because I think she had stabilization. She comes in again with protracted nausea, vomiting, and she was admitted per Dr. Lepe. We are consulted for TPN management, and I think diabetic management. She is a patient of Dr. Melton. I have discussed the case briefly with him. We will be managing primarily. PAST MEDICAL HISTORY: 1. Type 1 diabetes. She is on an insulin pump. 2. Gastroparesis, status post pacemaker. 3. Nineteen-week gestation. PAST SURGICAL HISTORY: 1. Cholecystectomy. 2. Appendectomy. 3. Gastric pacemaker. 4. Pyloroplasty. SOCIAL HISTORY: No tobacco or ethanol. ALLERGIES: Latex. MEDICATIONS: She is on an insulin pump, but I do not know what her based dose is and pump is on now. In any case, the patient is stabilized, and again, we are consulted for treatment. FAMILY HISTORY: Positive for diabetes. REVIEW OF SYSTEMS: Otherwise negative. PHYSICAL EXAMINATION: Vital signs: Blood pressure 158/65, heart rate of 109, respiratory 16, temperature 99.4 degrees, 100% saturation on room air. Cardiovascular: Regular rate and rhythm. Pulmonary: Bilateral breath sounds. Clear to auscultation. GI: Soft, nontender, nondistended. Bowel sounds are positive. Extremities: No clubbing or cyanosis. Lymphatics: No peripheral edema. Neurological: Nonfocal. Patient is just laying in bed without really any major issues. ASSESSMENT: A 36-year-old female with difficult to control gastroparesis, presenting with intractable nausea, vomiting, 19-week gestation and need for hyperalimentation. 1. Protein calorie malnutrition. We are starting total parenteral nutrition and setting up for home total parenteral nutrition when she has stabilized per [employer] recommendation. I have initiated total parenteral nutrition, we will follow belt tender recommendations once they have evaluated her caloric needs. 2. Intractable nausea, vomiting. That will be per Dr. Lepe. She is on Phenergan. She is on Reglan which is scheduled and I agree with. The family asked about adding Benadryl. They were told at [facility] that Zofran causes constipation, so they did not want to pursue that, but I am going to put that in addition to her other medications. So at this point we need to control her symptoms before worrying about putative side effects. Apparently there was some improvement in the past with Doxylamine and vitamin B6, so we are going to initiate that, but right now she really cannot tolerate anything p.o. so there is no real way to give that. 3. Diabetes. We will manage with her total parenteral nutrition, have to follow her insulin regimen closely. She is getting some insulin in the total parenteral nutrition and she also has her pump in place, so we will continue to follow. cc: MD Reinier Layne MD Jagan Reddy, MD John A. Shannon, MD
[2016-10-27 22:30] LABS: URINE CULTURE PL NEEDED? NO; URINE SOURCE CLEAN CATCH
[2016-10-27 22:32] LABS: BILIRUBIN URINE NEGATIVE (NEGATIVE); BLOOD URINE NEGATIVE (NEGATIVE); CLARITY CLEAR (CLEAR); COLOR YELLOW; LEUKOCYTES URINE NEGATIVE (NEGATIVE); NITRITE URINE NEGATIVE (NEGATIVE); PH URINE 6.5; PROTEIN URINE 1+(30 mg/dL) mg/dL (NEGATIVE); SP GRAVITY URINE 1.015; UROBILINOGEN URINE 1+(1 mg/dL)
[2016-10-27 22:35] LABS: URINE EPITHELIAL CELLS <10 /HPF (<10); URINE RBC <10 /HPF (<10); URINE WBC <10 /HPF (<10)
[2016-10-27] MEDS: HUMULIN R (PARKWAY) SUBQ SCH (22:37)
[2016-10-27] MEDS: BENADRYL IV PRN (22:41)
[2016-10-28] MEDS: REGLAN IV SCH ×3 (03:27→18:45)
[2016-10-28] MEDS: PHENERGAN IM PRN ×2 (03:27→09:30)
[2016-10-28] MEDS: BENADRYL IV PRN (05:42)
[2016-10-28] MEDS ORDERED: TPN ELECTROLYTES IV SCH ×6 (06:00)
[2016-10-28] MEDS: HUMULIN R (PARKWAY) SUBQ SCH ×2 (06:00→21:00)
[2016-10-28] MEDS ORDERED: [UNRECOGNIZED DRUG - OTHER] IV SCH ×6 (06:00)
[2016-10-28] MEDS ORDERED: AMINOSYN IV SCH ×6 (06:00)
[2016-10-28] MEDS ORDERED: HUMULIN R IV SCH ×6 (06:00)
[2016-10-28 07:22] LABS: HEMATOCRIT 28.1 % (37.0-47.0); HEMOGLOBIN 9.5 g/dL (12.0-16.0); MCH 31.9 PG (27-31); MCHC 33.8 g/dL (33-37); MCV 94.3 FL (81-99); MPV 9.8 FL (7.4-10.4); RBC 2.98 XMIL (4.2-5.4)
[2016-10-28] MEDS: LIPOSYN 20% 500 ML IV SCH (07:24)
[2016-10-28 08:03] LABS: AGAP 12; ALBUMIN 3.5 g/dL (3.5-5.0); ALKALINE PHOSPHATASE 45 U/L (32-104); BUN 6 mg/dL (8-22); CALCIUM 8.4 mg/dL (8.8-10.2); CHLORIDE 96 mmol/L (98-107); COSMO 270; GOT 14 U/L (10-30); GPT 9 U/L (10-36); MAGNESIUM 1.7 mg/dL (1.5-2.7); SODIUM 132 mmol/L (136-145); TCO2 24 mmol/L (25-35); TOTAL BILIRUBIN < 0.15 mg/dL (0.20-1.00); TOTAL PROTEIN 6.3 g/dL (6.3-8.3)
[2016-10-28] MEDS: DULCOLAX PR SCH (09:32)
[2016-10-28] MEDS ORDERED: LASIX IV ONE (09:39)
[2016-10-28] MEDS: PYRIDOXINE IV SCH (10:37)
[2016-10-28] MEDS: POTASSIUM CHLORIDE 20 MEQ/SWI 20 MEQ/100 ML IVPB IV SCH ×2 (10:38→12:17)
--- NOTE | 2016-10-28 10:52 | PROGRESS NOTE ---
DATE: 10/28/2016 SUBJECTIVE: The patient has still protracted nausea and vomiting. She threw up when she was in the room just this morning. OBJECTIVE: Vital Signs: Blood pressure 165/84, heart rate of 101, respiratory 16, temperature 99 degrees, 100% on room air. Cardiovascular: Regular rate and rhythm. Pulmonary: Bilateral breath sounds. Clear to auscultation. GI: Soft, nontender, nondistended bowel. LABORATORY DATA: Normal white count. Sodium is 132, potassium of 3, sugar of 236, bicarbonate is normal, no gap. PROBLEM LIST: 1. Protracted nausea and vomiting related to gastroparesis, possibly hyperemesis. We are planning for outpatient total parenteral nutrition. Consideration for a Reglan pump that will be per Dr. Archuleta I guess. 2. Protein calorie malnutrition. We will continue to follow very closely. Continue intravenous supplementation. Setting up for home total parenteral nutrition. Disposition: Pending multiple issues. 3. Hypokalemia. Will supplement and adjust her total parenteral nutrition accordingly. cc: MD Reinier Layne MD
[2016-10-28] MEDS: PROTONIX IV SCH (16:26)
[2016-10-28] MEDS: [UNRECOGNIZED DRUG - OTHER] IV SCH ×7 (16:30)
[2016-10-28] MEDS: AMINOSYN IV SCH ×7 (16:30)
[2016-10-28] MEDS: HUMULIN R IV SCH ×7 (16:30)
[2016-10-28] MEDS: TPN ELECTROLYTES IV SCH ×7 (16:30)
--- NOTE | 2016-10-28 16:51 | Diag Imaging Result Doc PS360 ---
US ABDOMEN-COMPLETE - 10/28/2016 INDICATION: abdominal pain COMPARISON: 07/29/2012 FINDINGS: The aorta and IVC are unremarkable. The liver appears normal in size and echotexture. The gallbladder is surgically absent. Common bile duct measures 4 mm. Pancreatic head appears normal. The body and tail are obscured by bowel gas artifact. The right kidney appears normal. There is no hydronephrosis. Left kidney and spleen are suboptimally visualized due to the patient's inability to cooperate with positioning for the study. Viable fetus is noted. IMPRESSION: No acute abnormalities are identified. Status post cholecystectomy. Suboptimal visualization of the left kidney and spleen. Electronically signed by Ingrid Young 10/28/2016 4:49 PM
[2016-10-29] MEDS: LIPOSYN 20% 500 ML IV SCH (00:07)
[2016-10-29] MEDS: PHENERGAN IM PRN ×2 (00:17→08:32)
[2016-10-29] MEDS: REGLAN IV SCH ×2 (04:04→10:29)
[2016-10-29 07:08] LABS: HEMATOCRIT 27.4 % (37.0-47.0); HEMOGLOBIN 8.9 g/dL (12.0-16.0); MCH 30.8 PG (27-31); MCHC 32.5 g/dL (33-37); MCV 94.8 FL (81-99); MPV 9.8 FL (7.4-10.4); RBC 2.89 XMIL (4.2-5.4)
[2016-10-29] MEDS: HUMULIN R (PARKWAY) SUBQ SCH ×2 (07:25→11:44)
[2016-10-29] MEDS: [UNRECOGNIZED DRUG - OTHER] IV SCH ×7 (07:26)
[2016-10-29] MEDS: TPN ELECTROLYTES IV SCH ×7 (07:26)
[2016-10-29] MEDS: HUMULIN R IV SCH ×7 (07:26)
[2016-10-29] MEDS: AMINOSYN IV SCH ×7 (07:26)
[2016-10-29 07:34] LABS: AGAP 10; ALKALINE PHOSPHATASE 41 U/L (32-104); BUN 11 mg/dL (8-22); CALCIUM 8.4 mg/dL (8.8-10.2); CHLORIDE 99 mmol/L (98-107); COSMO 273; DIRECT BILIRUBIN < 0.20 mg/dL (0.00-0.20); GOT 11 U/L (10-30); GPT 8 U/L (10-36); MAGNESIUM 1.6 mg/dL (1.5-2.7); SODIUM 134 mmol/L (136-145); TCO2 26 mmol/L (25-35); TOTAL BILIRUBIN < 0.15 mg/dL (0.20-1.00); TOTAL PROTEIN 5.4 g/dL (6.3-8.3)
--- NOTE | 2016-10-29 09:36 | DISCHARGE SUMMARY ---
ADMISSION DATE: 10/25/2016 DISCHARGE DATE: 10/29/2016 DIAGNOSES: 1. Intrauterine at 19 weeks. 2. Nausea and vomiting. 3. Gastroparesis. 4. Dehydration. HISTORY: The patient currently has a PICC line for hyperalimentation. Ms. Johnston is a 36-year- old, 2, para 0 at approximately 19 weeks, who presented on Wednesday with intractable nausea and vomiting. She has been seen at both [facility] and [facility] for the above diagnoses, and she states she has just been unable to keep anything down, and feels weak and dizzy. PAST MEDICAL HISTORY: Significant for the diabetes and the gastroparesis. PAST SURGICAL HISTORY: She has had a cholecystectomy and appendectomy and a gastric pacemaker. MEDICATIONS: Her only medications on admit were insulin, and she is getting some vitamins through her hyperalimentation. ALLERGIES: She states she is allergic to latex and tape. SOCIAL HISTORY: She denies tobacco, alcohol, or drug use. PHYSICAL EXAMINATION: Vital Signs: Temp 98 degrees, pulse 102, blood pressure 117/62. General: She is alert, cooperative, states she feels a little better, still unable to keep any food down. Neck: Supple. Lungs: Clear. Heart: Regular sinus rhythm. Abdomen: Gravid. Cervix: Deferred. Extremities: No cyanosis, clubbing, or edema. LABORATORY DATA: Her glucose is high at 199, calcium is low at 8.4. Total protein is low at 5.4, with albumin of 3.0. Her urine is negative. Toxicology, acetone level was negative on admit. White count of 7.4, hemoglobin and hematocrit of 8.9/27.4, platelets 270,000. ASSESSMENT: As above. PLAN: Will transfer to [facility] so she can get [facility] followup, GI, and also Endocrinology. I have talked to Dr. Brenda Villatoro and transfer has been arranged. cc: Reinier Archuleta MD [facility]ENT[facility]hian
[2016-10-29] MEDS ORDERED: POTASSIUM CHLORIDE 20 MEQ/SWI 20 MEQ/100 ML IVPB IV SCH (10:00)
[2016-10-29 11:42] VITALS: BP 142/62
[2016-10-29] MEDS: DULCOLAX PR SCH (11:43)
[2016-10-29] MEDS: PYRIDOXINE IV SCH (12:26)
== END 2016-10-29 12:35 | disposition short-term general hospital (02) ==
LOC: P.LD 07:08 → ED 07:08 → P.LD 14:15 → P.WC 10-27 15:10
PROVIDERS: ADMIT Obstetrics & Gynecology; ATTEND Obstetrics & Gynecology